=== PATIENT | female | born 1980 | race Caucasian/White ===

== ENCOUNTER 2020-04-12 09:30 | Emergency (ER) | payer MEDICARE ==
[~2020-04-12] VITALS: Ht 162.5 cm; Wt 58.6 kg
[~2020-04-12 09:30] MED LIST: ACHD5005 PO; LEXAPRO
[2020-04-12] MEDS ORDERED: ORPHENADRINE 60 MG/2 ML (NORFLEX) AMP (ED ONLY) IM ONE (10:15)
[2020-04-12] MEDS ORDERED: KETOROLAC 60 MG/2 ML VIAL IM ONE (10:15)
--- NOTE | 2020-04-12 10:21 | ED Fall/Injury ---
General Chief Complaint: Trauma-Non Activation Stated Complaint: FALL Nursing Triage Note: AMB TO ROOM REPORTS WAS PUTTING A SHEET OF PLASTIC OVER HER PLANTS GOT HER FEET CAUGHT UP IN PLASTIC AND FELL AND HIT HER HEAD LOW BACK. NO LOC NO BRUSING TO BACK NOTED 2 SM ABRASIONS TO L ARM. Source: patient Exam Limitations: no limitations History of Present Illness Date Seen by Provider: Apr 12, 2020 Time Seen by Provider: 10:05 Initial Comments Patient resents ER by private conveyance with chief complaint of a fall last night while tending in her garden landing on a wooden pallet. She struck her lower back and has been having some pain radiating down her right buttock. She has a history of 3 different back surgeries with the last [address] Rider. She does not follow with a primary care doctor anymore. She only followed for back pain. She has no other known medical history. She does not take any other medications. She's having some pain in her right ribs from the fall and some mild shortness of breath. A few abrasions on her left forearm. Allergies and Home Medications Allergies Coded Allergies: gabapentin (Verified Allergy, Intermediate, Hives, 02/29/20) Uncoded Allergies: MUSCLE REXLANT (Allergy, Unknown, 02/29/20) Muscle relaxers (Adverse Reaction, Unknown, Spasms, 02/29/20) Muscle spasms Home Medications Hydrocodone/Acetaminophen 1 Each Tablet, 1 EACH PO Q4H PRN for PAIN-MODERATE (5- 7) Prescribed by: NIKIA LEI on 02/29/20 1147 Patient Home Medication List Home Medication List Reviewed: Yes Review of Systems Review of Systems Constitutional: No chills, No diaphoresis Eyes: Denies Blindness, Denies Drainage Ears, Nose, Mouth, Throat: denies ear pain, denies ear discharge Respiratory: see HPI; No cough, No phlegm; short of breath Cardiovascular: see HPI Gastrointestinal: No abdominal pain, No nausea, No vomiting Genitourinary: No discharge, No dysuria Musculoskeletal: back pain; No joint pain All Other Systems Reviewed Negative Unless Noted: Yes Past Jxpewjn-Rxocwn-Oxbrdv Hx Patient Social History Alcohol Use: Occasionally Uses Recreational Drug Use: Yes (POT USED LAST NIGHT 04/11/20) Recent Foreign Travel: No Contact w/Someone Who Travel: No Recent Infectious Disease Expo: No Past Medical History Surgeries: Yes Hysterectomy, Orthopedic Respiratory: No Cardiac: No Neurological: No [employer] History: Hysterectomy Genitourinary: No Gastrointestinal: No Musculoskeletal: No Endocrine: No HEENT: No Cancer: No Psychosocial: Yes Anxiety Physical Exam Vital Signs Vital Signs - First Documented 04/12/20 09:40 Temp 36.4 Pulse 94 Resp 18 B/P (MAP) 134/97 (109) Pulse Ox 100 O2 Delivery Room Air Capillary Refill : Less Than 3 Seconds Height, Weight, BMI Height: '" Weight: lbs. oz. kg; 22.00 BMI Method: General Appearance: mild distress, thin HEENT: PERRL/EOMI, pharynx normal Neck: full range of motion, normal inspection Cardiovascular: normal peripheral pulses, regular rate, rhythm Respiratory: no respiratory distress, no accessory muscle use Peripheral Pulses: 2+ Radial Pulses (R), 2+ Radial Pulses (L) Back: normal inspection Extremities: non-tender, normal inspection, normal capillary refill Neurologic/Psychiatric: alert, normal mood/affect, oriented x 3, other (bilateral patellar deep tendon reflexes 2 out of 4, symmetric) Skin: normal color, warm/dry Stepan Coma Score Best Eye Response: (4) Open Spontaneously Best Verbal Response: (5) Oriented Best Motor Response: (6) Obeys Commands Stepan Total: 15 Progress/Results/Core Measures Results/Orders My Orders Orders - IRENA ANDREW Ketorolac Injection (Toradol Injection) (04/12/20 10:15) Orphenadrine Inj (Ed Only) (Norflex Inje (04/12/20 10:15) Ct Thoracic/Lumbar Spine Wo (04/12/20 10:13) Ribs, Right 2-3 Views (04/12/20 10:23) Medications Given in ED Current Medications Medications Dose Ordered Sig/[place] Route Start Time Stop Time Status Last Admin Dose Admin Ketorolac Tromethamine 60 mg ONCE ONCE IM 04/12/20 10:15 04/12/20 10:16 DC 04/12/20 10:22 60 MG Orphenadrine Citrate 60 mg ONCE ONCE IM 04/12/20 10:15 04/12/20 10:16 DC 04/12/20 10:22 60 MG Vital Signs/I&O 04/12/20 09:40 Temp 36.4 Pulse 94 Resp 18 B/P (MAP) 134/97 (109) Pulse Ox 100 O2 Delivery Room Air Blood Pressure Mean: 109 Progress Progress Note : Time: 10:22 Progress Note Rib x-ray, CT of the thoraco lumbar spine, Toradol and Norflex. Diagnostic Imaging Diagonstic Imaging: Xray Plain Films/CT/US/NM/MRI: chest Comments NAME: MARCOS [facility] REC#: [id number] PT STATUS: REG ER : 1980 PHYSICIAN: IRENA ANDREW MD ADMIT DATE: 04/12/20/ER Draft Date of Exam:04/12/20 RIBS, RIGHT 2-3 VIEWS INDICATION: Fall with pain in the lower right ribs. Time of exam 11:12 AM Multiple views right ribs were obtained. No displaced rib fracture is detected. No parenchymal contusion, effusion or pneumothorax is identified. IMPRESSION: No acute abnormality is detected. Dictated on workstation # [id number] Dict: 04/12/20 1118 Trans: 04/12/20 [facility] [place] [id number] Interpreted by: HERNANDO CARTWRIGHT MD Electronically signed by: Reviewed: Reviewed by Me Diagonstic Imaging: CT Plain Films/CT/US/NM/MRI: other (thoracolumbar) Comments [facility] [place] NAME: MARCOS MAR [facility] REC#: [id number] PT STATUS: REG ER : 1980 PHYSICIAN: IRENA ANDREW MD ADMIT DATE: 04/12/20/ER Draft Date of Exam:04/12/20 CT THORACIC/LUMBAR SPINE WO PROCEDURE: CT thoracic and lumbar spine without contrast. TECHNIQUE: Multiple contiguous axial images were obtained through the thoracic and lumbar spine without the use of intravenous contrast. Sagittal and coronal reformations were then performed.All CT scans use one or more of the following dose optimizing techniques: automated exposure control, MA and/or KvP adjustment based on a patient size and exam type, or iterative reconstruction. INDICATION: Fell down stairs. CT thoracic spine: Curvature and alignment of the thoracic spine is normal. Vertebral body heights are maintained. No fracture seen. There is generalized spondylosis with variable disc space narrowing and marginal spurring. Paraspinous tissues are unremarkable. IMPRESSION: Thoracic spondylosis. No acute bony abnormality is detected. CT lumbar spine: Curvature and alignment is normal. There are postop changes of anterior lumbar interbody fusion with plate and screws transfixing the L5-S1 level. Vertebral body heights are maintained. No acute fracture is seen. There is no subluxation. Disc spaces are maintained. Paraspinous tissues are unremarkable. IMPRESSION: Postoperative changes anterior lumbar interbody fusion L5-S1. No acute bony abnormality is detected. Dictated on workstation # [id number] Dict: 04/12/20 1112 Trans: 04/12/20 1116 [facility] [id number] Interpreted by: HERNANDO CARTWRIGHT MD Electronically signed by: Reviewed: Reviewed by Me Departure Impression Primary Impression: Fall Qualified Codes: W19.XXXA - Unspecified fall, initial encounter Additional Impressions: Lumbago with sciatica, right side Qualified Codes: M54.41 - Lumbago with sciatica, right side Rib pain on right side Abrasion of left arm Qualified Codes: S40.812A - Abrasion of left upper arm, initial encounter Disposition: 01 HOME, SELF-CARE Condition: Stable Departure-Patient Inst. Decision time for Depature: 11:38 Referrals: NO,LOCAL PHYSICIAN (PCP) Primary Care Physician EMMETT RIDER MD Patient Instructions: LOCAL PHYSICIAN LIST, Sciatica (DC), Sciatica Exercises Add. Discharge Instructions: Use ice on your back every couple hours for 20 minutes as necessary for pain for the first 2 days. Use topical creams such as icy hot, Biofreeze etc. Obtain a back brace and wear it on the days that helps for your pain. Tylenol 1000 mg every 8 hours as necessary for pain. Start using an NSAID such as ibuprofen or naproxen for the next 1-2 weeks on a regular basis for anti-inflammatory effect. Ibuprofen 800 mg every 8 hours or naproxen/Aleve 2 capsules twice a day. Robaxin every 6 hours as necessary for muscle spasms in your back. Use it with caution as this can cause drowsiness and increase your risk of falls. Get some rest today and start the stretching exercises. Follow-up with physical therapy if you're not seeing some improvement this week. All discharge instructions reviewed with patient and/or family. Voiced understanding. Scripts Methocarbamol (Robaxin-750) 750 Mg Tablet 750 MG PO Q6H PRN for SPASMS, #20 TAB 0 Refills Prov: IRENA ANDREW 04/12/20 IRENA ANDREW Apr 12, 2020 10:21
--- NOTE | 2020-04-12 10:45 | NUR ---
TO ROOM CON'T WANTS TO STAND AFTER IM .
--- NOTE | 2020-04-12 11:17 | Diagnostic Imaging Report ---
PROCEDURE: CT thoracic and lumbar spine without contrast. TECHNIQUE: Multiple contiguous axial images were obtained through the thoracic and lumbar spine without the use of intravenous contrast. Sagittal and coronal reformations were then performed.All CT scans use one or more of the following dose optimizing techniques: automated exposure control, MA and/or KvP adjustment based on a patient size and exam type, or iterative reconstruction. INDICATION: Fell down stairs. CT thoracic spine: Curvature and alignment of the thoracic spine is normal. Vertebral body heights are maintained. No fracture seen. There is generalized spondylosis with variable disc space narrowing and marginal spurring. Paraspinous tissues are unremarkable. IMPRESSION: Thoracic spondylosis. No acute bony abnormality is detected. CT lumbar spine: Curvature and alignment is normal. There are postop changes of anterior lumbar interbody fusion with plate and screws transfixing the L5-S1 level. Vertebral body heights are maintained. No acute fracture is seen. There is no subluxation. Disc spaces are maintained. Paraspinous tissues are unremarkable. IMPRESSION: Postoperative changes anterior lumbar interbody fusion L5-S1. No acute bony abnormality is detected. Dictated by: Dictated on workstation # [id number]
--- NOTE | 2020-04-12 11:21 | Diagnostic Imaging Report ---
INDICATION: Fall with pain in the lower right ribs. Time of exam 11:12 AM Multiple views right ribs were obtained. No displaced rib fracture is detected. No parenchymal contusion, effusion or pneumothorax is identified. IMPRESSION: No acute abnormality is detected. Dictated by: Dictated on workstation # [id number]
[2020-04-12] MEDS ORDERED: METH-313 PO (11:43)
[2020-04-12 11:55] VITALS: BP 115/91
== END 2020-04-12 11:55 | disposition home or self-care (01) ==
LOC: EDUNIT# 09:30 → ER 09:31
DX: S40.812A Abrasion of left upper arm, initial encounter (principal); R07.81 Pleurodynia; M54.41 Lumbago with sciatica, right side; R40.2410 Glasgow coma scale score 13-15, unspecified time; Z88.8 Allergy status to other drugs, medicaments and biological substances; W18.39XA Other fall on same level, initial encounter; W22.8XXA Striking against or struck by other objects, initial encounter
CPT/HCPCS: 71100; 72128; 72131